=== PATIENT | male | born 1990 | race Caucasian/White ===

== ENCOUNTER 2022-05-31 23:04 | Emergency (ER) | payer OTHER ==
[~2022-05-31] VITALS: Ht 185.4 cm; Wt 68.0 kg
[2022-06-01] MEDS ORDERED: IBU600 MG PO (00:53)
--- NOTE | 2022-06-01 07:15 | EKG ---
[facility] [address] [facility] [place] [address] Signed Normal sinus rhythm Minimal voltage criteria for LVH, may be normal variant ( Sokolow-Smiley ) ST elevation, consider early repolarization, pericarditis, or injury Abnormal ECG No previous ECGs available Confirmed by ELIS GROVER MD ([id number]) on 06/01/2022 7:15:43 AM Electronically Signed By: ELIS GROVER MD 06/01/22 0715 PATIENT NAME: RADHA RIZZO MAXIMO Electrocardiogram DATE OF : 88 PHYSICIAN: ELIS GROVER MD REPORT #: [id number] REPORT IS CONFIDENTIAL AND NOT TO BE RELEASED WITHOUT AUTHORIZATION
--- NOTE | 2022-06-01 07:16 | EKG ---
[facility] [address] [facility] [place] [address] Signed Sinus bradycardia Minimal voltage criteria for LVH, may be normal variant ( Sokolow-Smiley ) ST elevation, consider early repolarization, pericarditis, or injury Abnormal ECG Confirmed by ELIS GROVER MD ([id number]) on 06/01/2022 7:15:51 AM Electronically Signed By: ELIS GROVER MD 06/01/22 0716 PATIENT NAME: RADHA RIZZO MAXIMO Electrocardiogram DATE OF : 88 PHYSICIAN: ELIS GROVER MD REPORT #: [id number] REPORT IS CONFIDENTIAL AND NOT TO BE RELEASED WITHOUT AUTHORIZATION
== END 2022-06-01 01:31 | disposition home or self-care (01) ==
LOC: ED 23:04
DX: M94.0 Chondrocostal junction syndrome [Tietze] (principal); U07.1 COVID-19; Z88.2 Allergy status to sulfonamides
CPT/HCPCS: 36415; 71045; 80053; 84484; 85025; 85379; 93005; 93010; 96374; 99285-25; J1885